=== PATIENT | male | born 1990 | race Caucasian/White ===

== ENCOUNTER 2017-05-15 02:37 | Emergency (ER) | payer MEDICAID ==
[2017-05-15] MEDS ORDERED: Sulfamethoxazole/TMP 800/160mg Tab PO ONE (03:17)
--- NOTE | 2017-05-15 03:23 | ED Physician Chart ---
ED Chief Complaint/HPI - Patient Information Date Seen:: 05/15/17 Time Seen:: 03:05 Chief Complaint:: redness and swelling left distal forearm History of Present Illness:: Patient had spontaneous onset 2-1/2 days ago of redness and swelling of left distal forearm with pain in the left wrist. The only trauma was heavy lifting. Patient denies chills or fever. Patient is right-hand dominant. Vitals:: Vital Signs - 8 hr 05/15/17 02:40 Temp 97.7 F HR 93 RR 18 BP 135/75 O2 Sat % 97 Historian:: Patient Review:: Nurse's Note Reviewed ED Review of Systems - Review of Systems General/Constitutional: No fever, No chills, Weight loss Head: No headache Eyes: No loss of vision ENT: No earache Neck: No neck pain Cardio Vascular: No chest pain, No palpitations Pulmonary: No SOB GI: No nausea, No vomiting, No diarrhea G/U: No dysuria Musculoskeletal: Bone or joint pain Endocrine: No polyuria Psychiatric: No prior psych history ED Past Medical History - Past Medical History Past Medical History: No significant medical hx Family History: HTN Social History: Non Smoker, Alcohol Surgical History: None Psychiatricy History: None Medication: None Family Medical History - Family Member Mother Ethnicity: ED Physical Exam - Physical Examination General/Constitutional: Awake, Well-developed, well-nourished, Alert Head: Atraumatic Eyes: Lids, conjuctiva normal, PERRL Other Skin comments:: Left arm: There is mild erythema of the distal 12 cm of the left forearm; there is slight swelling of the left wrist and left hand. ENMT: External ears, nose nl Neck: No nuchal rigidity Respiratory: Nl effort/Exclusion, Clear to Auscultation Cardio Vascular: RRR, No murmur, gallop, rubs, NL S1 S2 GI: No tenderness/rebounding/guarding : No CVA tenderness Extremities: No tenderness or effusion Neuro/Psych: No focal deficits Misc: Normal back ED Assessment - Assessment General Assessment: the cause of the cellulitis in the left forearm is uncertain. Patient was told to return here immediately if redness or swelling increase. ED Septic Shock - . Is Septic Shock (SBP<90, OR Lactate>4 mmol\L) present?: No - <6hrs of presentation: Vital Signs: Vital Signs - 8 hr 05/15/17 02:40 Temp 97.7 F HR 93 RR 18 BP 135/75 O2 Sat % 97 ED Reassessment (Disposition) - Reassessment Reassessment Condition:: Unchanged - Diagnosis Diagnosis:: Cellulitis left distal forearm - Aftercare/Follow up Instructions Aftercare/Follow-Up Instructions:: Refer to Discharge Instructions Medication Prescribed:: Keflex 500 mg 4 times a day for 10 days and Bactrim double strength one twice a day for 10 days - Patient Disposition Discharge/Transfer:: Home Condition at Disposition:: Stable, Unchanged
[2017-05-15] MEDS ORDERED: Sulfamethoxazole/TMP 800/160mg Tab ONE (03:28)
== END 2017-05-15 03:45 | disposition home or self-care (01) ==
LOC: ER 02:37
DX: L03.114 Cellulitis of left upper limb (principal)
CPT/HCPCS: Z7502; Z7610